=== PATIENT | female | born 1955 | race African-American/Black ===

== ENCOUNTER 2017-04-14 11:43 | Inpatient (IN) | payer MEDICARE, MEDICAID ==
[~2017-04-14] VITALS: Ht 167.6 cm; Wt 87.3 kg
[~2017-04-14 11:43] MED LIST: ADALAT CC30 MG PO; CELEBREX 200MG200 MG PO; COLACE 100100 MG/CAP PO; FERROUS SU325 MG/TAB PO; NAPROSYN500 MG PO; NORCO 325 MG-51 TAB PO; NORCO 325 MG-7.1 TAB PO; NORVASC 5MG5 MG/TAB PO; PLAQUENIL 200M200 MG PO; PRILOTC; PROAIR HFA0.09 MG/AC IH; PROZAC 20MG20 MG PO; QVAR0.08 MG/AC IH; TRAVATAN Z 5 ML5 ML OD; ULTRAM 50MG TAB50 MG PO; ZANTAC 150MG T150 MG PO
[2017-06-01] VITALS (10 sets, daily range): BP systolic 99–149; BP diastolic 63–88; PULSE 60–102; TEMP 98.1–99.2
[2017-06-02 03:20] VITALS: BP 157/73; PULSE 90; TEMP 98.9
[2017-06-02] MEDS ORDERED: NORCO 325 MG-7.1 TAB PO (06:16)
[2017-06-02] MEDS ORDERED: ASPIRIN 32325 MG/TA1 PO (06:16)
[2017-06-02] MEDS ORDERED: CELEBREX 200MG200 MG PO (06:17)
[2017-06-02] MEDS ORDERED: ULTRAM 50MG TAB50 MG PO (06:18)
[2017-06-02 08:01] LABS: HEMATOCRIT 36.2 % (37.0-47.0); HEMOGLOBIN 11.3 g/dl (12.5-16.0)
[2017-06-02 08:03] VITALS: BP 114/82; PULSE 92; TEMP 98.1
[2017-06-02 11:30] VITALS: BP 132/70; PULSE 77; TEMP 98.2
[2017-06-02 15:55] VITALS: BP 134/66; PULSE 64; TEMP 98.7
[2017-06-02 21:39] VITALS: BP 134/66; PULSE 90; TEMP 98
[2017-06-02 23:10] VITALS: BP 135/62; PULSE 92; TEMP 99.2
[2017-06-03 04:04] VITALS: BP 142/74; PULSE 92; TEMP 98.3
[2017-06-03 06:05] LABS: HEMATOCRIT 32.6 % (37.0-47.0); HEMOGLOBIN 10.2 g/dl (12.5-16.0)
[2017-06-03 07:35] VITALS: BP 118/62; PULSE 82; TEMP 99.4
[2017-06-03 11:47] VITALS: BP 128/64; PULSE 91; TEMP 98.2
== END 2017-06-03 14:50 | disposition home or self-care (01) | DRG 470 ==
LOC: JCC 06-01 05:10
PROVIDERS: Orthopaedic Surgery; Physician Assistant
PROC: 0SRC0J9 Replacement of Right Knee Joint with Synthetic Substitute, Cemented, Open Approach (ICD-10-PCS; principal; 2017-06-01 07:30)
DX: M17.11 Unilateral primary osteoarthritis, right knee (principal); Z87.891 Personal history of nicotine dependence
CPT/HCPCS: A4315; A9284; C1713; C1776; J0690; J1885; J2250; J2270; J2405; J2704; J3010

== ENCOUNTER → 2021-03-25 | Outpatient (CLI) | payer MEDICARE, MEDICAID ==
[~2021-03-25] MED LIST changes: +ASPIRIN 32325 MG/TA1 PO
== END ==
LOC: COL.LAB 08:00 → COL.RAD 03-29 08:30
DX: Z20.822 Contact with and (suspected) exposure to COVID-19 (principal)

== ENCOUNTER 2021-10-03 12:22 | Day surgery (SDC) | payer MEDICARE, MEDICAID ==
[~2021-10-03] VITALS: Ht 167.6 cm; Wt 89.9 kg
[2021-10-03] VITALS (11 sets, daily range): BP systolic 139–175; BP diastolic 81–108; PULSE 70–78; TEMP 98.7
[2021-10-03 13:26] LABS: HEMATOCRIT 42.8 % (37.0-47.0); HEMOGLOBIN 14.2 g/dl (12.5-16.0); MEAN CELL VOLUME 93 fl (80.0-100.0); MEAN CORPUSCULAR HEMOGLOBIN 31 pg (27.0-31.0); MEAN CORPUSCULAR HGB CONC 33 g/dl (33.0-37.0); MEAN PLATELET VOLUME 9.9 fl (7.4-10.4); PLATELET COUNT 293 K/mm3 (130-400); RED BLOOD COUNT 4.61 M/mm3 (4.10-5.30); REDCELL DISTRIBUTION WIDTH-CV 13.7 % (11.5-14.5)
[2021-10-03 13:35] LABS: INR 1.1 (0.8-3.0); PROTHROMBIN TIME 12.6 SECONDS (9.7-12.8)
[2021-10-03 13:38] LABS: PARTIAL THROMBOPLASTIN TIME 37.2 SECONDS (26.0-37.0)
[2021-10-03 13:47] LABS: CALCIUM 9.8 mg/dL (8.4-10.2); CREATININE, serum 0.77 mg/dL (0.57-1.11); POTASSIUM 4.1 mmol/L (3.5-4.5)
--- NOTE | 2021-10-03 13:49 | NUR ---
SEE MERGE FOR ALL MEDICATION ADMINISTRATION TIMES, INTRA AND POST SEDATION ASSESSMENT
--- NOTE | 2021-10-03 19:11 | NUR ---
1502- PT back to [facility] from laboratory technician, report received from Nataly ESCALANTE. Pt is awake and alert, pwd with reg and unlabored respirations. NSR on monitor. TR band to rt wrist, cms intact. pt updated on poc. lunch ordered. call light in reach. 1844- pt has done well during her recovery. TR band has been deflated with no problem. Site dressed with bandaid, folded 2x2 and coban, cms remains intact distal. Pt has been up and ambulatory with steady gait. I have reviewed dc/fu instructions with pt who verbalized understanding. IV dc'd with cath intact, dressing applied. escorted to exit where her dad is waiting to pick her up.
== END 2021-10-03 19:14 | disposition home or self-care (01) ==
LOC: COL.CAR 12:22
PROVIDERS: Internal Medicine Interventional Cardiology
DX: R07.89 Other chest pain (principal); R06.02 Shortness of breath; R94.39 Abnormal result of other cardiovascular function study
CPT/HCPCS: C1769; J1644; J2250; J3010; Q9967